=== PATIENT | female | born 1985 | race African-American/Black ===

== ENCOUNTER 2018-10-18 17:15 | Emergency (ER) | payer MEDICAID, OTHER, SELFPAY | END 2018-10-18 18:16 | disposition home or self-care (01) | LOC: ERS 17:15 | DX: L03.115 Cellulitis of right lower limb (principal) | CPT/HCPCS: 99283 ==

== ENCOUNTER 2019-10-11 15:16 | Emergency (ER) | payer BC ==
[2019-10-11 15:49] LABS: #Eosinphils 0.1 thou/uL (0.0-0.7); #Lymphocytes 1.9 thou/uL (1.20-3.40); #Monocytes 0.7 thou/uL (0.11-0.59); #Neutrophils 6.9 thou/uL (1.40-6.50); %Basophils 0.4 % (0.0-1.0); %Eosinophils 1.1 % (0.0-10.0); %Lymphocytes 19.2 % (21.0-51.0); %Monocytes 7.7 % (0.0-10.0); %Neutrophils 71.6 % (42.0-75.0); Hemoglobin 14.6 g/dL (12.0-16.0); Mean Corpuscular HGB CONC 32.9 g/dL (32.0-36.0); Mean Corpuscular Hemoglobin 28.4 pg (27.0-31.0); Mean Corpuscular Volume 86.4 fL (78.0-98.0); Mean Platelet Volume 8.6 fL (7.4-10.4); Platelet Count 284 thou/uL (130-400); RBC Distribution Width 11.9 % (11.5-14.5); Red Blood Cell (RBC) Count 5.15 mill/uL (4.20-5.40); White Blood Cell (WBC) Count 9.6 thou/uL (4.8-10.8)
[2019-10-11 16:01] LABS: Bilirubin Negative (Negative); Blood, Urine Negative (Negative); Clarity Turbid (Clear); Glucose, Urine (Dipstick) Normal (Negative); Leukocyte 75 Leu/uL (Negative); Nitrite Negative (Negative); Protein, Urine (Dipstick) 10 mg/dL (Neg-Trace); RBC/HPF 0-3 HPF (0-3); Urobilinogen Normal mg/dL (Less than 2)
[2019-10-11 16:09] LABS: Bacteria/HPF Rare-Few HPF (None Seen)
[2019-10-11 16:10] LABS: Mucous/LPF Rare LPF (<2+)
[2019-10-11 16:15] LABS: ALT (SGPT) 18 U/L (8-55); AST (SGOT) 16 U/L (5-34); Albumin 3.9 g/dL (3.5-5.0); Alkaline Phosphatase 89 U/L (40-110); Anion Gap 11 mmol/L (10-20); BUN (Urea Nitrogen) 7 mg/dL (7.0-18.7); Bilirubin, Total 0.3 mg/dL (0.2-1.2); Calc. Creatinine Clearance 0 mL/min (70-130); Calcium 9.3 mg/dL (7.8-10.44); Carbon Dioxide 27 mmol/L (22-29); Chloride 105 mmol/L (98-107); Estimated GFR-MDRD Greater than 90; Globulin 3.4 g/dL (2.4-3.5); Glucose 95 mg/dL (70-105); Potassium 3.9 mmol/L (3.5-5.1); Protein, Total 7.3 g/dL (6.0-8.3); Sodium 139 mmol/L (136-145)
[2019-10-11 19:37] LABS: #Eosinphils 0.1 thou/uL (0.0-0.7); #Lymphocytes 1.5 thou/uL (1.20-3.40); #Monocytes 0.6 thou/uL (0.11-0.59); #Neutrophils 6.4 thou/uL (1.40-6.50); %Basophils 0.6 % (0.0-1.0); %Eosinophils 1.3 % (0.0-10.0); %Lymphocytes 17.7 % (21.0-51.0); %Monocytes 7.3 % (0.0-10.0); %Neutrophils 73.1 % (42.0-75.0); Hemoglobin 15.1 g/dL (12.0-16.0); Mean Corpuscular HGB CONC 33.7 g/dL (32.0-36.0); Mean Corpuscular Hemoglobin 29.2 pg (27.0-31.0); Mean Corpuscular Volume 86.5 fL (78.0-98.0); Mean Platelet Volume 8.4 fL (7.4-10.4); Platelet Count 276 thou/uL (130-400); RBC Distribution Width 12.1 % (11.5-14.5); Red Blood Cell (RBC) Count 5.19 mill/uL (4.20-5.40); White Blood Cell (WBC) Count 8.7 thou/uL (4.8-10.8)
[2019-10-11 19:50] LABS: BHCG - Serum Negative (NEGATIVE); Pregs Control Background? CLEAR/WHITE (CLR/WHITE); Pregs Control Bar Appear? YES (CONTROL BAR)
[2019-10-11] MEDS ORDERED: diphenhydrAMINE 25 MG CAP ONE (19:58)
[2019-10-11] MEDS ORDERED: Ketorolac Tromethamine 30 MG/ML VIAL ONE (19:58)
[2019-10-11] MEDS ORDERED: Metoclopramide HCl 10 MG/2 ML VIAL ONE (19:58)
[2019-10-11] MEDS ORDERED: Acetaminophen 500 MG TAB ONE ×2 (19:58→20:13)
[2019-10-11] MEDS ORDERED: diphenhydrAMINE 50 MG/ML VIAL ONE (20:00)
[2019-10-11 20:01] LABS: ALT (SGPT) 19 U/L (8-55); AST (SGOT) 16 U/L (5-34); Albumin 4.1 g/dL (3.5-5.0); Alkaline Phosphatase 86 U/L (40-110); Anion Gap 8 mmol/L (10-20); BUN (Urea Nitrogen) 7 mg/dL (7.0-18.7); Bilirubin, Total 0.4 mg/dL (0.2-1.2); Calc. Creatinine Clearance 0 mL/min (70-130); Calcium 9.3 mg/dL (7.8-10.44); Carbon Dioxide 30 mmol/L (22-29); Chloride 105 mmol/L (98-107); Estimated GFR-MDRD 81; Globulin 3.5 g/dL (2.4-3.5); Glucose 96 mg/dL (70-105); Potassium 3.6 mmol/L (3.5-5.1); Protein, Total 7.6 g/dL (6.0-8.3); Sodium 139 mmol/L (136-145)
[2019-10-11] MEDS ORDERED: Magnesium 2 GM/50 ML BAG (IN WATER) ONE (20:41)
== END 2019-10-11 21:50 | disposition home or self-care (01) ==
LOC: ERS 15:16
DX: R51 Headache (principal); R11.2 Nausea with vomiting, unspecified; R19.7 Diarrhea, unspecified
CPT/HCPCS: 36415; 80053; 81001; 84703; 85025; 96361; 96365; 96375; J1200; J1885; J2765; J3475; Q0163

== ENCOUNTER 2021-03-01 16:58 | Emergency (ER) | payer BC ==
[2021-03-01 17:30] LABS: #Eosinphils 0.2 thou/uL (0.0-0.7); #Lymphocytes 2.2 thou/uL (1.20-3.40); #Monocytes 0.6 thou/uL (0.11-0.59); #Neutrophils 4.9 thou/uL (1.40-6.50); %Basophils 0.2 % (0.0-1.0); %Lymphocytes 27.8 % (21.0-51.0); %Monocytes 7.6 % (0.0-10.0); %Neutrophils 62.4 % (42.0-75.0); Hemoglobin 14.2 g/dL (12.0-16.0); Mean Corpuscular HGB CONC 33.2 g/dL (32.0-36.0); Mean Corpuscular Hemoglobin 28.7 pg (27.0-31.0); Mean Corpuscular Volume 86.5 fL (78.0-98.0); Mean Platelet Volume 8.6 fL (7.4-10.4); Platelet Count 270 thou/uL (130-400); RBC Distribution Width 11.9 % (11.5-14.5); Red Blood Cell (RBC) Count 4.94 mill/uL (4.20-5.40); White Blood Cell (WBC) Count 7.8 thou/uL (4.8-10.8)
[2021-03-01 17:50] LABS: ALT (SGPT) 21 U/L (8-55); AST (SGOT) 17 U/L (5-34); Albumin 3.8 g/dL (3.5-5.0); Alkaline Phosphatase 86 U/L (40-110); Anion Gap 10 mmol/L (10-20); BUN (Urea Nitrogen) 10 mg/dL (7.0-18.7); Bilirubin, Total 0.3 mg/dL (0.2-1.2); Calc. Creatinine Clearance 0 mL/min (70-130); Calcium 8.9 mg/dL (7.8-10.44); Carbon Dioxide 29 mmol/L (22-29); Chloride 106 mmol/L (98-107); Globulin 3.5 g/dL (2.4-3.5); Glucose 106 mg/dL (70-105); Potassium 3.4 mmol/L (3.5-5.1); Protein, Total 7.3 g/dL (6.0-8.3); Sodium 142 mmol/L (136-145)
[2021-03-01 18:13] LABS: Bacteria/HPF None Seen HPF (None Seen); Bilirubin Negative (Negative); Blood, Urine Trace (Negative); Clarity Clear (Clear); Glucose, Urine (Dipstick) Normal (Negative); Ketone, Urine Negative (Negative); Leukocyte Negative Leu/uL (Negative); Nitrite Negative (Negative); Pregnancy Test - Urine (BHCG) Negative (Negative); Pregu Control Background? CLEAR/WHITE (CLR/WHITE); Pregu Control Bar Appear? YES (CONTROL BAR); Protein, Urine (Dipstick) Negative (Neg-Trace); RBC/HPF 0-3 HPF (0-3); Specific Gravity 1.015 (1.002-1.036); Specific Gravity, Urine 1.015 (1.002-1.036); Urobilinogen Normal mg/dL (Less than 2); WBC/HPF 0-3 HPF (0-3)
[2021-03-01] MEDS ORDERED: Magnesium 2 GM/50 ML BAG (IN WATER) ONE (18:48)
[2021-03-01] MEDS ORDERED: diphenhydrAMINE 50 MG/ML VIAL ONE (18:49)
[2021-03-01] MEDS ORDERED: Metoclopramide HCl 10 MG/2 ML VIAL ONE (18:49)
[2021-03-01] MEDS ORDERED: Ketorolac Tromethamine 30 MG/ML VIAL ONE (18:49)
== END 2021-03-01 20:29 | disposition home or self-care (01) ==
LOC: ERS 16:58
DX: I10 Essential (primary) hypertension (principal); E87.6 Hypokalemia
CPT/HCPCS: 36415; 80053; 81003; 81015; 81025; 83735; 83880; 84484; 85025; 93005; 94760; 96365; 96366; 96368; 96375; J1200; J1885; J2765; J3475

== ENCOUNTER 2021-10-17 18:01 | Emergency (ER) | payer BC ==
[2021-10-17] MEDS ORDERED: diphenhydrAMINE 50 MG/ML VIAL ONE (18:22)
[2021-10-17] MEDS ORDERED: Metoclopramide HCl 10 MG/2 ML VIAL ONE (18:22)
[2021-10-17] MEDS ORDERED: Acetaminophen 500 MG TAB ONE (18:22)
== END 2021-10-17 20:55 | disposition home or self-care (01) ==
LOC: ERS 18:01
DX: R51.9 Headache, unspecified (principal); I10 Essential (primary) hypertension; Z79.899 Other long term (current) drug therapy; Z97.5 Presence of (intrauterine) contraceptive device
CPT/HCPCS: 96365; 96366; 96375; J1200; J2765

== ENCOUNTER 2022-01-23 14:56 | Outpatient (CLI) | payer OTHER | END 2022-01-23 14:57 | disposition home or self-care (01) | LOC: RAD 14:56 | PROVIDERS: ATTEND Family Medicine | DX: S49.91XA Unspecified injury of right shoulder and upper arm, initial encounter (principal); M19.011 Primary osteoarthritis, right shoulder ==

== ENCOUNTER 2022-05-01 11:05 | Emergency (ER) | payer BC ==
[2022-05-01] MEDS ORDERED: diphenhydrAMINE 50 MG/ML VIAL ONE (11:50)
[2022-05-01] MEDS ORDERED: Metoclopramide HCl 10 MG/2 ML VIAL ONE (11:50)
[2022-05-01] MEDS ORDERED: Ketorolac Tromethamine 30 MG/ML VIAL ONE (12:44)
== END 2022-05-01 14:19 | disposition home or self-care (01) ==
LOC: ERS 11:05
DX: R51.9 Headache, unspecified (principal); I10 Essential (primary) hypertension
CPT/HCPCS: 96374; 96375; J1200; J1885; J2765

== ENCOUNTER 2022-05-15 09:38 | Outpatient (CLI) | payer OTHER ==
[2022-05-15] MEDS ORDERED: EPINEPHrine 1 MG/ML VIAL ONE (10:30)
[2022-05-15] MEDS ORDERED: Gadobenate Dimeglumine 529 MG/1 ML (20ML VIAL) ONE (10:30)
[2022-05-15] MEDS ORDERED: Lidocaine 1% PF 5 ML VIAL ONE (10:30)
[2022-05-15] MEDS ORDERED: Iopamidol 300 61% 50 ML VIAL FS ONE (10:30)
== END 2022-05-15 09:39 | disposition home or self-care (01) ==
LOC: RAD 09:38
PROVIDERS: ATTEND Orthopaedic Surgery
DX: S43.001A Unspecified subluxation of right shoulder joint, initial encounter (principal)
CPT/HCPCS: 23350; A9577; J0171; Q9967

== ENCOUNTER 2023-08-24 19:40 | Emergency (ER) | payer BC ==
[2023-08-24] MEDS ORDERED: Ketorolac Tromethamine 30 MG/ML VIAL ONE (20:50)
[2023-08-24] MEDS ORDERED: diphenhydrAMINE 50 MG/ML VIAL ONE (20:50)
[2023-08-24] MEDS ORDERED: Prochlorperazine 10 MG/2 ML VIAL ONE (20:50)
== END 2023-08-24 22:25 | disposition home or self-care (01) ==
LOC: ERS 19:40
DX: R51.9 Headache, unspecified (principal); I10 Essential (primary) hypertension
CPT/HCPCS: 96374; 96375; J0780; J1200; J1885

== ENCOUNTER 2024-12-05 10:01 | Emergency (ER) | payer BC, OTHER ==
[2024-12-05] MEDS ORDERED: Ketorolac Tromethamine 30 MG (1 mL) VIAL ONE (10:35)
[2024-12-05] MEDS ORDERED: Metoclopramide HCl 10 MG (2 mL) VIAL ONE (10:36)
[2024-12-05] MEDS ORDERED: diphenhydrAMINE 50 MG/ML VIAL ONE (10:36)
[2024-12-05] MEDS ORDERED: Prochlorperazine 10 MG/2 ML VIAL ONE (11:55)
== END 2024-12-05 12:52 | disposition home or self-care (01) ==
LOC: ERS 10:01
DX: G43.909 Migraine, unspecified, not intractable, without status migrainosus (principal); I10 Essential (primary) hypertension; Z55.6 Problems related to health literacy
CPT/HCPCS: 96374; 96375; J0780; J1200; J1885; J2765